=== PATIENT | female | born 1975 | race Caucasian/White ===

== ENCOUNTER 2016-07-23 07:30 | Inpatient (IN) | payer BC ==
[~2016-07-23] VITALS: Ht 172.7 cm; Wt 79.4 kg
[2016-08-27] MEDS ORDERED: ALBUTEROL MDI INHALATION 8 GM INH INH ONE (07:00)
[2016-08-27] MEDS ORDERED: ALBUTEROL SULFATE 0.083% 2.5 MG/3 ML VIAL.NEB INH ONE (07:16)
[2016-08-27] MEDS ORDERED: NS IRRIG SOLN 1000 ML IR ONE (07:20)
[2016-08-27] MEDS ORDERED: ONDANSETRON HCL 4 MG/2 ML VIAL IVP ONE (07:20)
[2016-08-27] MEDS ORDERED: LR 1,000 ML IV.SOLN IV ONE (07:20)
[2016-08-27] MEDS ORDERED: fentaNYL CITRATE 250 MCG/5 ML AMP IV ONE (07:20)
[2016-08-27] MEDS ORDERED: PROPOFOL 200MG/ 20ML VIAL (DIPRIVAN) IV ONE (07:20)
[2016-08-27] MEDS ORDERED: SEVOFLURANE 15 MIN GAS INH ONE (07:20)
[2016-08-27] MEDS ORDERED: MIDAZOLAM HCL 5 MG/5 ML VIAL IVP ONE (07:20)
[2016-08-27] MEDS ORDERED: ROCURONIUM BROMIDE 10 MG/ML (ZEMURON) IV ONE (07:20)
[2016-08-27] MEDS ORDERED: CLINDAMYCIN PHOSPHATE 900 mg/50mL D5W IV ONE (07:20)
[2016-08-27] MEDS ORDERED: KETOROLAC TROMETHAMINE 30 MG VIAL IVP ONE (07:20)
[2016-08-27] MEDS ORDERED: LR 1,000 ML IV SCH (08:22)
[2016-08-27] MEDS ORDERED: METOCLOPRAMIDE HCL 10 MG/2 ML VIAL IVP PRN (08:30)
[2016-08-27] MEDS ORDERED: MORPHINE 4 MG/ML INJ. SYRINGE IVP PRN ×3 (08:30)
[2016-08-27] MEDS ORDERED: ONDANSETRON HCL 4 MG/2 ML VIAL IVP PRN (09:45)
[2016-08-27] MEDS ORDERED: SIMETHICONE 80 MG TAB.CHEW PO PRN (09:45)
[2016-08-27] MEDS ORDERED: BISACODYL 10 MG/SUPPOSITORY RC PRN (09:45)
[2016-08-27] MEDS ORDERED: MORPHINE 4 MG/ML INJ. SYRINGE IM PRN (09:45)
[2016-08-27] MEDS ORDERED: TEMAZEPAM 15 MG CAPSULE PO PRN (09:45)
[2016-08-27] MEDS ORDERED: HYDROmorphone 2 MG/ML VIAL IVP PRN (09:45)
[2016-08-27] MEDS ORDERED: SENNOSIDES/DOCUSATE SODIUM 1 TAB TABLET(SENOKOT-S) PO PRN (09:45)
[2016-08-27] MEDS ORDERED: DOCUSATE SODIUM 100 MG CAPSULE PO PRN (09:45)
[2016-08-27] MEDS: MORPHINE 4 MG/ML INJ. SYRINGE ONE ×2 (09:54→10:04)
--- NOTE | 2016-08-27 10:40 | NUR ---
ADMISSION: The patient, GERRY HEAD, 41 y/o, F admitted by DANELLE JIMENEZ MD, was given written information regarding hospital policies, unit procedures and contact persons. Valuables were checked and signed.
[2016-08-27 10:54] VITALS: BP 125/63; PULSE 69; RESP 12; TEMP 98.4; O2SAT 99
[2016-08-27 12:00] VITALS: BP 128/60; PULSE 67; RESP 18; TEMP 98.2; O2SAT 95
[2016-08-27] MEDS: KETOROLAC TROMETHAMINE 30 MG VIAL IVP SCH ×3 (12:02→23:19)
--- NOTE | 2016-08-27 12:20 | NUR ---
PATIENT RESTING: Patient resting quietly. No acute distress noted. Vital signs within normal range.
[2016-08-27] MEDS: LR 1,000 ML IV SCH ×2 (12:55→17:20)
[2016-08-27 14:00] VITALS: BP 121/73; PULSE 73; RESP 18; TEMP 98.2; O2SAT 98
--- NOTE | 2016-08-27 14:41 | NUR ---
PATIENT RESTING: Patient resting quietly. No acute distress noted. Vital signs within normal range.
[2016-08-27 16:00] VITALS: BP 123/68; PULSE 68; RESP 18; TEMP 98; O2SAT 98
[2016-08-27 16:25] VITALS: BP 123/68; PULSE 85
--- NOTE | 2016-08-27 16:28 | NUR ---
PATIENT RESTING: Patient resting quietly. No acute distress noted. Vital signs within normal range.
--- NOTE | 2016-08-27 18:09 | NUR ---
CLOSING NOTE: All needs met. No change in assessment. Will endorse to NOC shift nurse.
--- NOTE | 2016-08-27 19:35 | NUR ---
INITIAL NOTE PT. RECEIVED AAOX4, NO S/S OF SOB OR DISTRESS NOTED AT THIS TIME. VSS. PT. EDUCATED ON USE OF INCENTIVE SPIROMETER, VERBALIZES UNDERSTANDING. IV ACCESS NOTED TO LEFT WRIST, NO REDNESS OR SWELLING NOTED TO THE SITE. IV FLUIDS INFUSING WELL ORDERED. ABDOMINAL DRESSING IS DRY AND INTACT. NO ACTIVE BLEEDING NOTED. PT. HAS PILLOW TO ABDOMEN AND USES TO SPLINT WHILE COUGHING. SCDS ARE ON BILATERALLY. MALIK CATHETER DRAINING TO GRAVITY, YELLOW OUTPUT NOTED. PLAN OF CARE DISCUSSED WITH THE PT., VERBALIZES UNDERSTANDING. INSTRUCTED TO CALL FOR ANY ASSISTANCE. WILL CONTINUE TO MONITOR FOR ANY CHANGES. SAFETY AND FALL PRECAUTIONS IN PLACE. CALL LIGHT IN REACH, BED ALARM ON, SIDE RAILS UP X3.
[2016-08-27 19:40] VITALS: BP 120/70; PULSE 65; RESP 18; TEMP 99.2; O2SAT 99
--- NOTE | 2016-08-27 22:05 | NUR ---
ROUNDS PT. RESTING IN BED WITH EYES CLOSED. CHEST RISE AND FALL NOTED. NO S/S OF SOB OR DISTRESS. NO SIGNS OF PAIN NOTED AT THIS TIME. NO SIGNS OF ACTIVE BLEEDING. IV FLUIDS INFUSING WELL. SCDS ON BILATERALLY. WILL CONTINUE TO MONITOR FOR ANY CHANGES. SAFETY AND FALL PRECAUTIONS IN PLACE. CALL LIGHT IN REACH, BED ALARM ON.
[2016-08-28 00:22] VITALS: BP 133/84; PULSE 80; RESP 18; TEMP 98.8; O2SAT 97
[2016-08-28] MEDS: LR 1,000 ML IV SCH ×2 (01:28→09:50)
--- NOTE | 2016-08-28 02:05 | NUR ---
ROUNDS PT. RESTING QUIETLY WITH EYES CLOSED. CHEST RISE AND FALL NOTED. NO S/S OF SOB OR DISTRESS. NO FACIAL GRIMACING INDICATING PAIN. IV FLUIDS INFUSING WELL. WILL CONTINUE TO MONITOR. SAFETY AND FALL PRECAUTIONS IN PLACE, CALL LIGHT IN REACH, ALARM ON.
[2016-08-28 04:00] VITALS: BP 126/69; PULSE 79; RESP 18; TEMP 98.9; O2SAT 98
--- NOTE | 2016-08-28 04:05 | NUR ---
ROUNDS PT. RESTING QUIETLY WITH EYES CLOSED. CHEST RISE AND FALL NOTED. NO S/S OF SOB OR DISTRESS. NO FACIAL GRIMACING INDICATING PAIN. IV FLUIDS INFUSING WELL. SCDS BILATERALLY. WILL CONTINUE TO MONITOR. SAFETY AND FALL PRECAUTIONS IN PLACE, CALL LIGHT IN REACH, ALARM ON.
[2016-08-28] MEDS: IBUPROFEN 600 MG TABLET PO SCH ×4 (05:47→23:40)
[2016-08-28] MEDS: KETOROLAC TROMETHAMINE 30 MG VIAL IVP SCH (05:47)
[2016-08-28] MEDS ORDERED: OXYCODONE/ACETAMINOPHEN 5-325 TABLET PO PRN (06:00)
--- NOTE | 2016-08-28 06:33 | NUR ---
CLOSING NOTE PT. RESTING QUIETLY IN BED. NO S/S OF SOB OR DISTRESS NOTED. PT. DENIES PAIN AT THIS TIME. IV FLUIDS INFUSING WELL ORDERED. NO ACTIVE BLEEDING NOTED. PT. REMINDED TO USE INCENTIVE SPIROMETER HOURLY. VERBALIZES UNDERSTANDING. SCDS ON BILATERALLY. ALL NECESSARY NEEDS WERE MET, SAFETY AND FALL PRECAUTIONS WERE MAINTAINED. WILL ENDORSE CARE TO AM NURSE. CALL LIGHT IN REACH, BED ALARM ON.
[2016-08-28 07:10] LABS: EOSINOPHILS # (AUTO) 0.1 K/uL (0.0-0.4); MEAN CORPUSCULAR HEMOGLOBIN 28 pg (27-31); RED CELL DISTRIBUTION WIDTH 13.9 % (9.0-15.0)
[2016-08-28 07:17] LABS: BASOPHILS % (AUTO) 0.2 % (0.0-2.0); EOSINOPHILS % (AUTO) 1.3 % (0.0-4.0); HEMATOCRIT 32.7 % (36-48); HEMOGLOBIN 10.8 g/dL (12.0-16.0); LYMPHOCYTES % (AUTO) 15.4 % (20.5-51.5); MEAN CORPUSCULAR HGB CONC 33 % (32-36); MEAN CORPUSCULAR VOLUME 84 fL (79.0-98.0); MONOCYTES # (AUTO) 0.4 K/uL (0.0-1.0); MONOCYTES % (AUTO) 6.4 % (1.7-9.3); NEUTROPHILS # (AUTO) 5.2 K/uL (1.8-7.7); NEUTROPHILS % (AUTO) 76.7 % (40.0-70.0); PLATELET COUNT (AUTO) 227 K/uL (130-430); WHITE BLOOD COUNT (AUTO) 6.7 K/uL (4.8-10.8)
--- NOTE | 2016-08-28 07:54 | NUR ---
Nutrition Update Gautam Scale 18 noted. Pt admitted for excessive and frequent menstruation. Diet: regular BMI: 26.6 kg/m2 RD to follow per nutrition care standards.
--- NOTE | 2016-08-28 08:00 | NUR ---
OPENING NOTES PT IN BED, DENIES PAIN, NO SOB, NO DISTRESS, MALIK AT FOOT OF BED, BED IN LOW POSITION. PT INSTRUCTED TO CALL FOR ASSIST AND PAIN MEDICATIONS. IV FLUIDS ON GOING WELL. IV SITE DRY AND INTACT.
[2016-08-28 08:10] VITALS: BP 137/73; PULSE 82; RESP 18; TEMP 99; O2SAT 98
--- NOTE | 2016-08-28 09:58 | NUR ---
MALIK MALIK CATH DISCONTINUED. PT TOLERATED WELL. NO C/O PAIN.
--- NOTE | 2016-08-28 10:00 | NUR ---
NOTES PT IN BED, C/O PAIN. NO DISTRESS. NOTED THAT PT IS COUGHING BUT UNABLE TO COUGH OUT PHLEGM. IV SITE PATENT AND CLEAN AND DRY, IV INFUSING WELL. KING DSICONTINUED. INSTRUCTED PT TO CALL IS SHE NEEDS TO GO TO THE BATHROOM. CALLIGHT IN REACH.
[2016-08-28 11:43] VITALS: BP 129/66; PULSE 95; RESP 17; TEMP 98.5; O2SAT 98
--- NOTE | 2016-08-28 12:00 | NUR ---
NOTES, PT ASSISTED TO BATHROOM AND BACK TO BED, PT STATED THAT SHE VOIDED ALREADY AND SHE HAS BLOOD TINGED DISCHARGE. EDUCATED PT THAT BLOODY DISCHARGE AFTER A PROCEDURE LIKE HERS IS NORMAL BUT INFORM NURSES IF THE DISCHARGE BECOMES PURULENT AND SMELLS BAD.
--- NOTE | 2016-08-28 14:00 | NUR ---
NOTES, PT IN BED, NO C/O OF PAIN. INFORMED PT THAT WE GOT AN ORDER FOR COUGH MEDICATION AND IS AVAILABLE UPON REQUEST. CALL LIGHT IN REACH. BED IN LOW POSITION.
--- NOTE | 2016-08-28 16:00 | NUR ---
NOTES, PT IN BED, NO C/O OF PAIN. CALL LIGHT IN REACH. BED IN LOW POSITION. PT STATED SHE WENT TO BATHROOM AND VOIDED AGAIN. STATED THAT BLEEDING IS BETTER THAN THIS AM.
[2016-08-28 16:48] VITALS: BP 124/58; PULSE 88; RESP 17; TEMP 98.2; O2SAT 98
--- NOTE | 2016-08-28 18:00 | NUR ---
CLOSING NOTES PT IN BED, GIVEN HER SHCEDULED MEDICATION. PAIN LEVEL IS 3/10, REMINDED THAT SHE CAN GET STRONGER MEDICATION IF SHE NEEDS IT. IV INTACT. IV FLUIDS DC'D PT IS DRINKING AND EATING WELL.
--- NOTE | 2016-08-28 20:00 | NUR ---
ROUNDS PATIENT RESTING COMFORTABLY IN BED, NOT IN DISTRESS, VITALS STABLE. DENIES ANY PAIN AND DISCOMFORT AT THIS TIME. ASSESSMENT DONE AND DOCUMENTED. SEE FLOWSHEET. NEEDS ATTENDED TO. SAFETY AND FALL PRECAUTION MEASURES IN PLACED. CALL LIGHT PLACED WITHIN REACH.
--- NOTE | 2016-08-28 22:15 | NUR ---
PATIENT RESTING: Patient resting quietly. No acute distress noted. Vital signs within normal range.
--- NOTE | 2016-08-29 | NUR ---
PATIENT RESTING: Patient resting quietly. No acute distress noted. Vital signs within normal range.
[2016-08-29 00:04] VITALS: BP 118/60; PULSE 74; RESP 18; TEMP 97.5; O2SAT 97
[2016-08-29 04:00] VITALS: BP 134/82; PULSE 78; RESP 18; TEMP 97.4; O2SAT 98
--- NOTE | 2016-08-29 04:10 | NUR ---
PATIENT RESTING: Patient resting quietly. No acute distress noted. Vital signs within normal range.
[2016-08-29] MEDS: IBUPROFEN 600 MG TABLET PO SCH (06:06)
--- NOTE | 2016-08-29 06:50 | NUR ---
CLOSING NOTES PATIENT AWAKE, VITALS STABLE, ALL NEEDS ATTENDED TO. SAFETY MEASURES MAINTAINED. CALL LIGHT PLACED WITHIN REACH.
--- NOTE | 2016-08-29 07:25 | NUR ---
Handoff report at patient bedside. Requests to go home this am.
--- NOTE | 2016-08-29 08:00 | NUR ---
Patient says MD already came to room and discharged her. Knows how to care for incision and when to follow up.
[2016-08-29 08:06] VITALS: BP 134/82; PULSE 78; RESP 18; TEMP 97.4; O2SAT 98
--- NOTE | 2016-08-29 08:15 | NUR ---
Removal of IV site. Patient to get dressed. No bruising, bleeding noted. No edema.
--- NOTE | 2016-08-29 08:30 | NUR ---
Teaching on coughing , deep breathing , and lozenges. Patient has moist cough. Encouraged 10 x per hour use of incentive spirometer.
--- NOTE | 2016-08-29 08:45 | NUR ---
Signature on belongings list verified with patient.
[2016-08-29 08:51] VITALS: BP 152/85; PULSE 100; RESP 18; TEMP 98.5; O2SAT 99
--- NOTE | 2016-08-29 09:07 | NUR ---
D/C Patient Patient given medication reconciliation form and D/C instructions. Exit Care provided. Patient verbalized understanding. MD discussed with patient the results and treatment provided. Ambulatory with steady gait for discharge to home. Patient in stable condition, ID band removed. IV catheter removed, intact and dressing applied, no active bleeding. No Rx given, verified Rx at home. Patient educated on pain management. All belongings sent with patient.
== END 2016-08-29 09:00 | disposition home or self-care (01) | DRG 743 ==
LOC: SMU 08-27 05:50
PROVIDERS: ADMIT Obstetrics & Gynecology; ATTEND Obstetrics & Gynecology
PROC: 0UT90ZZ Resection of Uterus, Open Approach (ICD-10-PCS; 2016-08-27)
PROC: 0UTC0ZZ Resection of Cervix, Open Approach (ICD-10-PCS; 2016-08-27)
PROC: 0UT70ZZ Resection of Bilateral Fallopian Tubes, Open Approach (ICD-10-PCS; principal; 2016-08-27 07:30)
DX: D25.9 Leiomyoma of uterus, unspecified (principal); Z80.8 Family history of malignant neoplasm of other organs or systems; Z88.0 Allergy status to penicillin; Z98.82 Breast implant status
CPT/HCPCS: 36415; 85025; 86886; 86900; 86901; 87081; 88307; 94010; 94640; J1170; J1885; J2250; J2270; J2405; J2704; J3010; J3490; J7120